=== PATIENT | male | born 2000 | race Caucasian/White ===

== ENCOUNTER → 2022-05-18 09:07 | Outpatient (BNVA) | payer SELFPAY | PROVIDERS: Family Provider Family Medicine; PCP Family Medicine; Visit Provider Nurse Practitioner Family | DX: R73.09 Other abnormal glucose (principal); Z76.89 Persons encountering health services in other specified circumstances; L63.9 Alopecia areata, unspecified; R03.0 Elevated blood-pressure reading, without diagnosis of hypertension | CPT/HCPCS: 83036 ==

== ENCOUNTER → 2022-06-30 15:07 | Outpatient (BNVA) | payer BC, SELFPAY | PROVIDERS: Family Provider Family Medicine; PCP Family Medicine; Visit Provider Nurse Practitioner Family | DX: L63.9 Alopecia areata, unspecified (principal); L65.9 Nonscarring hair loss, unspecified | CPT/HCPCS: 80053; 84403; 84439; 84443; 84480; 85025 ==

== ENCOUNTER → 2022-07-13 16:31 | Outpatient (BNVA) | payer BC, SELFPAY | PROVIDERS: Family Provider Family Medicine; PCP Nurse Practitioner Family; Visit Provider Nurse Practitioner Family | DX: L65.9 Nonscarring hair loss, unspecified (principal) | CPT/HCPCS: 81000; 85651; 86038; 86140; 86160; 86162; 86200; 86235; 86255; 86376; 86431 ==